=== PATIENT | male | born 1945 | race African-American/Black ===

== ENCOUNTER 2019-01-02 15:06 | Inpatient (IN) | payer OTHER ==
[~2019-01-02] VITALS: Ht 175.3 cm; Wt 90.9 kg
[2019-01-02 15:18] VITALS: BP 120/89
[2019-01-02 16:14] VITALS: BP 120/89
[2019-01-02 16:30] LABS: ABSOLUTE NEUTROPHILS 1.6 thou/uL (1.4-8.2); BASOPHILS 1.3 % (0.0-2.0); EOSINOPHILS 3.5 % (0.0-3.0); HEMATOCRIT 39.4 % (42.0-52.0); LYMPHOCYTES 42.1 % (24.0-44.0); MCH 29.4 pg (26.0-34.0); MCHC 33.1 g/dL (28.0-37.0); MCV 88.8 fL (80.0-100.0); MONOCYTES 8.4 % (1.0-8.0); PLATELET COUNT 267 thou/uL (150-400); POLYS 44.7 % (36.0-66.0); RBC 4.44 mil/uL (4.50-6.00); WBC 3.6 thou/uL (4.0-11.0)
[2019-01-02 16:42] LABS: ANION GAP 13 mmol/L (7-16); BUN 19 mg/dL (7-18); CHLORIDE 105 mmol/L (98-107); CO2 21 mmol/L (21-32); CREATININE 0.8 mg/dL (0.7-1.3); GLUCOSE 106 mg/dL (74-106); POTASSIUM 4.6 mmol/L (3.5-5.1); SODIUM 139 mmol/L (136-145)
[2019-01-02 16:52] LABS: SGOT 38 U/L (15-37); SGPT 41 U/L (30-65); TOTAL BILIRUBIN 0.7 mg/dL (<0.1-1.0); TOTAL PROTEIN 6.4 g/dL (6.4-8.2); TROPONIN-I <0.06 ng/mL (<0.06)
[2019-01-02 16:53] VITALS: BP 124/74
[2019-01-02 17:33] VITALS: BP 113/93
[2019-01-02 19:48] VITALS: BP 110/61
[2019-01-02] MEDS ORDERED: CYMBALTA60 MG PO (20:33)
[2019-01-02] MEDS ORDERED: DICLOFENAC SODI75 MG PO (20:34)
[2019-01-02] MEDS ORDERED: PRILOSEC OTC20 MG PO (20:35)
[2019-01-02] MEDS ORDERED: CENTRUM SILVER1 EAC2 PO (20:36)
[2019-01-02] MEDS ORDERED: CINNAMON500 MG PO (20:37)
[2019-01-02] MEDS ORDERED: FLAX SEED OIL1000 MG PO (20:38)
[2019-01-02] MEDS ORDERED: COZAAR 25 MG TA25 M1 PO (20:39)
[2019-01-02] MEDS ORDERED: GLUCOTROL5 MG PO (20:40)
[2019-01-02] MEDS ORDERED: FLOMAX0.4 MG PO (20:41)
[2019-01-02] MEDS ORDERED: GLIPIZIDE 10 MG10 MG PO (20:41)
[2019-01-02] MEDS ORDERED: SIMVASTATIN40 MG PO (20:43)
[2019-01-02] MEDS ORDERED: METFORMIN HCL500 MG PO (20:43)
[2019-01-02 23:24] VITALS: BP 102/65
[2019-01-03] VITALS (14 sets, daily range): BP systolic 98–127; BP diastolic 68–94
--- NOTE | 2019-01-03 05:18 | NUR ---
ASSUMED PT CARE AT 1900. S PT A&OX4. DR SILVER SAW PT LAST NIGHT, PLANS FOR A HEART CATH THIS AM. CONSENT SIGNED. PT HAS BEEN NPO SINCE 0000. GOOD URINE OUTPUT DUE TO DIURESIS. PT IS STABLE, COMPLAINED OF SOME ARTHRITIC PAIN IN HIS WRIST BUT DENIES NEED FOR PAIN MEDICINE. PT SLEPT WELL FOR MOST OF THE NIGHT, WILL CONTINUE TO MONITOR PER POC.
--- NOTE | 2019-01-03 08:58 | EKG ---
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1945 Requested By: Dell Preciado Order Number: [id number] MD: Patrick Zhang Measurements Intervals Vendor Rate: 90 P: 45 TX: 229 QRS: -24 QRSD: 107 T: 224 QT: 388 QTc: 475 Interpretive Statements Sinus rhythm Ventricular premature complexes Prolonged TX interval Borderline left axis deviation Probable anteroseptal infarct, old Nonspecific T abnormalities, lateral leads No previous ECG available for comparison Electronically Signed On 01-03-2019 8:58:16 CDT by Patrick Zhang [email or web address] ��������������������������������������������� <ELECTRONICALLY SIGNED> ���������������������������������������� By: Patrick Zhang MD, [facility]IN [facility] ��������������������������������������������� 01/03/19 0858 1530 1530 Patrick Zhang MD, [facility] /EPI
--- NOTE | 2019-01-03 14:19 | NUR ---
ASSESSMENT DOCUMENTED. VSS. NSR ON THE MONITOR. R GROIN SITE C/D/I WITH NO S/SX OF HEMATOMA. PT OFF BEDREST AT 1410 WITH NO COMPLICATIONS. PT REPORTS NO PAIN/CHEST PAIN. PT RESTING IN BED WITH CALL LIGHT IN REACH. WILL CONTINUE TO MONITOR.
--- NOTE | 2019-01-03 17:10 | NUR ---
ASSUMED CARE OF PATIENT AT 1500. PATIENT UNDERWENT CARDIAC CATH THIS MORNING WITH A RIGHT GROIN SITE. THERE IS NO BLEEDING, EDEMA OR BRUISING AT RIGHT GROIN SITE. PATIENT OFF BEDREST OF 1500. PATIENT RESTING COMFORTABLY IN BED. ASSESSMENT CHARTED. PATIENT DENIES CHEST PAIN OR PRESSURE. CONTINUE TO FOLLOW WITH POC.
[2019-01-04] VITALS (7 sets, daily range): BP systolic 101–149; BP diastolic 37–90
--- NOTE | 2019-01-04 03:17 | NUR ---
ASSESSMENT DOCUMENTED.PT BEEN RESTING IN NO ACUTE DISTRESS.A/OX4.VSS.S/P CARDIAC RICHELLE W/O INTERVENTION.RIGHT GROIN INTACT,W/O HEMATOMA,DRSG CDI.UP AD GAYLE TO BR.GAIT STEADY.POSSIBLE DISCHARGE TODAY.NO NEEDS VOICED AT THIS TIME.WILL CONT WITH POC.
[2019-01-04 05:11] LABS: HEMATOCRIT 42.8 % (42.0-52.0); HEMOGLOBIN 14.1 gm/dL (14.0-18.0); MCH 29.2 pg (26.0-34.0); MCV 88.5 fL (80.0-100.0); RBC 4.84 mil/uL (4.50-6.00); RDW 14.3 % (10.5-14.5); WBC 4.2 thou/uL (4.0-11.0)
[2019-01-04 05:19] LABS: CALCIUM 9.4 mg/dL (8.5-10.1); CREATININE 1.2 mg/dL (0.7-1.3); POTASSIUM 3.8 mmol/L (3.5-5.1)
[2019-01-04 05:30] LABS: APTT 31.8 Seconds (24.5-32.8); INR 1.1
[2019-01-04] MEDS ORDERED: COREG6.25 MG PO (07:59)
[2019-01-04] MEDS ORDERED: DEMADEX20 MG PO (07:59)
[2019-01-04] MEDS ORDERED: POTASSIUM20 PO (08:00)
--- NOTE | 2019-01-04 08:26 | EKG ---
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1945 Requested By: German Miles Order Number: [id number] MD: Patrick Zhang Measurements Intervals Sidney Rate: 91 P: 65 OR: 222 QRS: -22 QRSD: 106 T: 173 QT: 376 QTc: 463 Interpretive Statements Sinus rhythm Atrial premature complex Prolonged OR interval Nonspecific T abnrm, anterolateral leads Compared to ECG 01/02/2019 15:30:31 Atrial premature complex(es) now present Electronically Signed On 01-04-2019 8:26:18 CDT by Patrick Zhang [email or web address] ��������������������������������������������� <ELECTRONICALLY SIGNED> ���������������������������������������� By: Patrick Zhang MD, [facility] ��������������������������������������������� 01/04/19 0826 0715 Patrick Zhang MD, [facility] /EPI
--- NOTE | 2019-01-04 17:08 | CATHLAB ---
[facility] [address] [place] [address] INVASIVE PROCEDURE REPORT Name: DINO LASSITER Room #: 215-P DIS IN M.R.#: [id number] ������������� Admission: 01/02/19 ������������� Attend Phys: German Miles, Discharge: ��� 01/04/19 ������������� ��� Date of : 49 Date of Service: 01/04/19 1708 �� Report #: [id number] �������� ��������������������������������������������[id number] THIS REPORT FOR: //name// APPROVED REPORT Study performed: 01/03/2019 07:04:19 Patient Details Patient Status: In-Patient Room #: 215 The patient is a 73 year-old male Event Personnel German Miles Contracting Analyst, Arianna ChavezR, CLERICAL COORDINATOR Monitor, Guerrero Swanson RN RN, Roosevelt Whitten RN RN, Rosa Pérez Scrandrews Procedures Performed Art Access - R femoral artery* Brandon Access - R femoral vein Right and Left Heart Cath w/or w/o Coronarie [id number] [facility] 33575 Initial Mod Sed Same Phys/QHP Gr5y [id number] Hemostasis w/ Mynx Hemostasis with Manual pressure Indication Cardiomyopathy Procedure Narrative The Right Groin^ was infiltrated with subcutaneous anesthesia. A PINNACLE 6FR Sheath #[id number] sheath was inserted into the RFA. Coronary angiography was performed using coronary diagnostic catheters. The right coronary system was accessed and visualized with a JR4 catheter. The left coronary system was accessed and visualized with a JL4 catheter. The left ventricle was accessed and visualized with a Pigtail catheter. Left ventriculogram was performed in 30 degree projection. An aortogram of the abdominal aorta was performed. Pre-demployment femoral angiogram was performed . Closure device was deployed with a 6 Fr MYNXGRIP 6/7F #[id number]. Hemostasis was obtained with manual pressure following sheath removal without any complications. The patient tolerated the procedure well and there were no complications associated with the procedure. There was no hematoma. Intraoperative Conscious Sedation Sedation start time: 07:39 Case end Time: 08:05 Fentanyl 50 mcg Versed [address] [address] INVASIVE PROCEDURE REPORT Name: DINO LASSITER Room #: 215-P [facility] IN .R.#: [id number] ������������� Admission: 01/02/19 ������������� Attend Phys: German Miles, Discharge: ��� 01/04/19 ������������� ��� Date of : 49 Date of Service: 01/04/19 1708 �� Report #: [id number] �������� ��������������������������������������������[id number] Fluoro Time: 2.39 minutes Dose: DAP 4609.77 cGycm2 435 mGy Contrast Type and Amount: Omnipaque 350-115ml Hemodynamics The right atrial mean pressure is 16 mmHg. The right ventricular pressure is 55/15 mmHg. The pulmonary artery pressure is 58/35 mmHg with a mean of 44 mmHg. The mean pulmonary capillary wedge pressure is 29 mmHg. The aortic pressure is 120/79 mmHg with a mean of 97 mmHg. The left ventricular pressure is 119/16 mmHg with a mean of mmHg. The left ventricular end diastolic pressure is 31 mmHg. The cardiac output using thermo method is 5.30 L/min. The cardiac index using thermo method is 2.56 L/min/m2. Conclusion #1 assessment right heart catheterization with severe pulmonary hypertension elevated wedge pressure consistent with volume overload. See above hemodynamics #2 mildly dilated left ventricle with moderately severe global hypokinesis EF 20% range 2+ mitral regurgitation #3 abdominal aortogram shows and a ectatic aorta not aneurysmal. We'll follow noninvasively. Renal arteries appear to be patent #4 left main large free of disease giving rise to LAD and circumflex #5 the LAD is proximal calcification and eccentric lesion of 30-40% proximal than vessel well preserved as it extends around the apex large wraparound system #6 circumflex OM nondominant mild disease #7 there is a ramus intermedius which is small and mildly diseased #8 dominant right coronary artery with mild irregularity. Indications and plan: Patient having some dyspnea and difficulty lying flat. IV Lasix was given. Early in procedure. This is an idiopathic cardiomyopathy. There is no indication for coronary intervention. Aggressive diuresis. Patient will transfer to CCU for continued hospitalization. ��������������������������������������������� <ELECTRONICALLY SIGNED> ���������������������������������������� By: German Miles MD, FACC ��������������������������������������������� 01/04/191707 07 07 German Miles MD, FACC /INF
--- NOTE | 2019-01-08 08:52 | H ---
[facility] [place] [address] HISTORY AND PHYSICAL Name: DINO LASSITER Room #: 215-P DIS IN M.R.#: [id number] Admission: 01/02/19 ������������������ Attend Phys: German Miles MD, Discharge: 01/04/19 ������������������ Date of : [birth year] Report #: [id number] THIS REPORT FOR: //name// CC: German Stubbs MD DATE OF SERVICE: 01/02/2019 HISTORY OF PRESENT ILLNESS: The patient is a 73-year-old male who was sent somewhat urgently over to my office after seeing his primary care doctor yesterday, having significant progressive shortness of breath, dyspnea, and unable to lie in the bed last couple of nights. Was mild to moderately dyspneic in the office, and had some evidence of weight gain. An echo revealed significant LV dysfunction. There is no prior history of cardiac dysfunction or infarcts. Somewhat segmental in that the anterior septal wall seemed to be worse involved. Was significantly dyspneic and presented to [facility] as this was closest to the office. Laboratory work was obtained and revealing also evidence consistent with acute systolic heart failure exacerbation. LABORATORY DATA: Reveals potassium of 4.6, creatinine 0.8. Troponin 0.06. BNP was 2499. Liver function tests were normal. H and H was 13 and 39. Chest x-ray reveals cardiomegaly, pleural effusion, infiltrate, some questionable mediastinal widening. HOME MEDICATIONS: have included simvastatin, Flonase, Glucotrol, losartan 50, metformin, which we have held; tramadol, tamsulosin, Flomax and Cardura 8. PAST MEDICAL HISTORY: Positive for hypertension, prostate cancer, diabetes, hypercholesterolemia, some erectile issues, sleep apnea and recurrent pulmonary history with COPD. He quit smoking in 2009. SOCIAL HISTORY: He is . Quit smoking 9 years ago, social alcohol use, 3 cups of coffee a day. He is retired. ALLERGIES: PREDNISONE. REVIEW OF SYSTEMS: Negative except for some nocturia and frequency. PHYSICAL EXAMINATION: GENERAL: He is in a moderate amount of distress, but improved after the IV Lasix. VITAL SIGNS: Blood pressure is 110/60, pulse was 90s. HEENT: Eyes reveal xanthelasmas. Pharynx is clear. NECK: Shows there is some evidence of JVD, mild to moderate in nature and there [facility] [address] [place] [address] HISTORY AND PHYSICAL Name: DINO LASSITER Room #: 215-P DIS IN M.R.#: [id number] Admission: 01/02/19 ������������������ Attend Phys: German Miles MD, Discharge: 01/04/19 ������������������ Date of : [birth year] Report #: [id number] is some subtle hepatojugular reflux. LUNGS: Prolonged expiratory phase, crackles in the bases. CARDIAC: Distant heart sounds, S1, S2. ABDOMEN: Slightly protuberant, nontender. EXTREMITIES: Reveal trace to 1+ edema. Distal pulses diminished. NEUROLOGIC: Nonfocal. SKIN: Warm and dry without xanthoma or ulcer. MUSCULOSKELETAL: Generalized arthritic changes. ASSESSMENT: 1. Acute systolic heart failure with significant demise in left ventricular function, ejection fraction 25% by echo. Possible anterior wall infarct. 2. Coronary artery disease suspected with segmental wall motion abnormality. 3. Hypertension. 4. Diabetes. 5. Hypercholesterolemia. 6. Degenerative joint disease. 7. History of prostate cancer. RECOMMENDATIONS AND PLAN: We will admit. IV Lasix. BNP is elevated consistent with the findings, also pleural effusion. Would proceed urgently with right and left heart catheterization to delineate the anatomy and evaluate volume status, cardiac output. We will continue with losartan, holding metformin, add beta rich, and further recommendations after invasive procedure. Thank you for allowing me to participate in this patient's care. ��������������������������������������������� <ELECTRONICALLY SIGNED> ���������������������������������������� By: German Miles MD, FACC ��������������������������������������������� 01/08/19 0852 22 38 German Miles MD, FACC /nt
== END 2019-01-04 13:57 | disposition home or self-care (01) | DRG 286 ==
LOC: ER 15:06 → 2N 15:42 → EROBS 15:42 → 2N 17:19 → ENTRNSPT 01-04 13:01 → EDTRNSPTSTS 01-04 13:04 → 2N 01-04 13:57
PROVIDERS: Emergency Medicine; ADMIT Internal Medicine Cardiovascular Disease
DX: I11.0 Hypertensive heart disease with heart failure (principal); I50.21 Acute systolic (congestive) heart failure; I42.9 Cardiomyopathy, unspecified; E11.9 Type 2 diabetes mellitus without complications; E78.00 Pure hypercholesterolemia, unspecified; J44.9 Chronic obstructive pulmonary disease, unspecified; I25.10 Atherosclerotic heart disease of native coronary artery without angina pectoris; M19.90 Unspecified osteoarthritis, unspecified site; E78.5 Hyperlipidemia, unspecified; Z85.46 Personal history of malignant neoplasm of prostate; Z87.891 Personal history of nicotine dependence; Z88.8 Allergy status to other drugs, medicaments and biological substances; Z79.899 Other long term (current) drug therapy
CPT/HCPCS: 10081; 10194